=== PATIENT | female | born 1950 | race American Indian/Alaskan Native ===

== ENCOUNTER 2016-08-16 16:22 | Emergency (ER) | payer OTHER ==
[2016-08-16 17:30] LABS: Basophils % (Auto) 0.3 % (0.0-1.8); Hematocrit 35.6 % (30.3-42.9); Hemoglobin 11.8 gm/dl (10.1-14.3); Mean Corpuscular HGB Conc 33 % (30-34); Mean Corpuscular Hemoglobin 29 pg (28-32); Mean Corpuscular Volume 88 fl (79-97); Platelet Count 272 K/mm3 (140-440); Red Blood Count 4.04 M/mm3 (3.65-5.03); White Blood Count 7.4 K/mm3 (4.5-11.0)
[2016-08-16 17:35] LABS: Anion Gap 18 mmol/L; Blood Urea Nitrogen 18 mg/dL (7-17); Calcium 9.1 mg/dL (8.4-10.2); Carbon Dioxide 26 mmol/L (22-30); Chloride 99.8 mmol/L (98-107); Glucose 128 mg/dL (65-100); Sodium 140 mmol/L (137-145)
--- NOTE | 2016-08-16 20:12 | Emergency Department Report ---
ED General Adult HPI - General Chief complaint: Arrhythmia/Palpitations Stated complaint: HEART RACING Time Seen by Provider: 08/16/16 20:00 Source: patient, RN notes reviewed Mode of arrival: Ambulatory Limitations: No Limitations - History of Present Illness Initial comments: This is a 65-year-old female. She is previously unknown to me. She reports a past medical history hypertension. Primary care doctor is at [facility]; Dr. Artie Owens. The patient presents to the ER with a complaint of painless palpitations. They have been present for 8-9 days. The patient was previously on losartan, and indicates that the medication was causing her to have palpitations. She endorsed this to her primary care doctor, and the patient was switched to amlodipine. The palpitations are painless. There is no nausea, vomiting, diaphoresis or chest pain. There is no abdominal pain. No fevers or chills. No leg pain. No leg swelling. No trips greater than 4 hours within the past month. No recent hospital admissions. -: Gradual Severity scale (0 -10): 0 Consistency: intermittent Improves with: none Worsens with: none Associated Symptoms: denies: confusion, chest pain, cough, diaphoresis, fever/ chills, headaches, loss of appetite, malaise, nausea/vomiting, rash, shortness of breath, syncope, weakness - Related Data Home Medications Medication Instructions Recorded Confirmed Last Taken amLODIPine [Norvasc] 10 mg PO DAILY 08/16/16 08/16/16 Unknown Allergies Allergy/AdvReac Type Severity Reaction Status Date / Time codeine AdvReac "BODY NUMB" Verified 08/16/16 16:39 ibuprofen AdvReac "NERVOUS / Verified 08/16/16 16:39 SHAKE" ED Review of Systems ROS: Stated complaint: HEART RACING Other details as noted in HPI Constitutional: denies: fever Eyes: denies: vision change ENT: denies: epistaxis Respiratory: denies: cough Cardiovascular: palpitations. denies: chest pain Gastrointestinal: denies: nausea Genitourinary: as per HPI Musculoskeletal: as per HPI Skin: as per HPI Neurological: as per HPI Psychiatric: as per HPI ED Past Medical Hx - Past Medical History Hx Hypertension: Yes - Surgical History Additional Surgical History: LAPAROSCOPY - Social History Smoking Status: Never Smoker Substance Use Type: None - Medications Home Medications: Home Medications Medication Instructions Recorded Confirmed Last Taken Type amLODIPine [Norvasc] 10 mg PO DAILY 08/16/16 08/16/16 Unknown History ED Physical Exam - General Limitations: No Limitations General appearance: alert, in no apparent distress - Head Head exam: Present: atraumatic, normocephalic - Eye Eye exam: Present: normal appearance, EOMI. Absent: nystagmus - ENT ENT exam: Present: normal exam, normal orophraynx, mucous membranes moist, normal external ear exam - Neck Neck exam: Present: normal inspection, full ROM. Absent: tenderness, meningismus - Respiratory Respiratory exam: Present: normal lung sounds bilaterally. Absent: respiratory distress, wheezes, rales, rhonchi, stridor, chest wall tenderness, accessory muscle use, decreased breath sounds, prolonged expiratory - Cardiovascular Cardiovascular Exam: Present: regular rate, normal rhythm, normal heart sounds. Absent: bradycardia, tachycardia, irregular rhythm, systolic murmur, diastolic murmur, rubs, gallop - GI/Abdominal GI/Abdominal exam: Present: soft, normal bowel sounds. Absent: distended, tenderness, guarding, rebound, rigid, pulsatile mass - Extremities Exam Extremities exam: Present: normal inspection, full ROM, normal capillary refill. Absent: tenderness, pedal edema, joint swelling, calf tenderness - Back Exam Back exam: Present: normal inspection, full ROM. Absent: tenderness, CVA tenderness (R), CVA tenderness (L), muscle spasm, paraspinal tenderness, vertebral tenderness - Neurological Exam Neurological exam: Present: alert, oriented X3, normal gait, other (Extraocular movements intact. Tongue midline. No facial droop. Facial sensation intact to light touch in the V1, V2, V3 distribution bilaterally. 5 and 5 strength in 4 extremities.. Sensation is intact to light touch in 4 extremities.). Absent : motor sensory deficit - Psychiatric Psychiatric exam: Present: normal affect, normal mood - Skin Skin exam: Present: warm, dry, intact, normal color. Absent: rash ED Course Vital Signs 08/16/16 08/16/16 08/16/16 16:43 19:53 19:55 Temperature 98.9 F 98.5 F Pulse Rate 74 65 68 Respiratory 18 20 20 Rate Blood Pressure 195/87 Blood Pressure 154/65 [Left] O2 Sat by Pulse 97 99 100 Oximetry 08/16/16 08/16/16 08/16/16 20:00 20:06 20:08 Temperature Pulse Rate 72 68 Respiratory 14 20 Rate Blood Pressure 170/81 Blood Pressure [Left] O2 Sat by Pulse 100 Oximetry 08/16/16 08/16/16 08/16/16 20:10 20:20 20:30 Temperature Pulse Rate 65 75 65 Respiratory 13 18 17 Rate Blood Pressure 170/81 166/69 171/69 Blood Pressure [Left] O2 Sat by Pulse 99 100 99 Oximetry 08/16/16 08/16/16 08/16/16 20:40 20:50 21:00 Temperature Pulse Rate 71 65 66 Respiratory 18 17 15 Rate Blood Pressure 171/69 162/54 164/50 Blood Pressure [Left] O2 Sat by Pulse 98 100 99 Oximetry ED Medical Decision Making - Lab Data Result diagrams: 08/16/16 17:04 08/16/16 17:04 Vital Signs 08/16/16 08/16/16 08/16/16 16:43 19:53 19:55 Temperature 98.9 F 98.5 F Pulse Rate 74 65 68 Respiratory 18 20 20 Rate Blood Pressure 195/87 Blood Pressure 154/65 [Left] O2 Sat by Pulse 97 99 100 Oximetry 08/16/16 08/16/16 08/16/16 20:00 20:06 20:08 Temperature Pulse Rate 72 68 Respiratory 14 20 Rate Blood Pressure 170/81 Blood Pressure [Left] O2 Sat by Pulse 100 Oximetry 08/16/16 20:10 Temperature Pulse Rate 65 Respiratory 13 Rate Blood Pressure 170/81 Blood Pressure [Left] O2 Sat by Pulse 99 Oximetry Lab Results 08/16/16 08/16/16 08/16/16 Range/Units 17:04 17:04 19:44 WBC 7.4 (4.5-11.0) K/mm3 RBC 4.04 (3.65-5.03) M/mm3 Hgb 11.8 (10.1-14.3) gm/dl Hct 35.6 (30.3-42.9) % MCV 88 (79-97) fl MCH 29 (28-32) pg MCHC 33 (30-34) % RDW 14.0 (13.2-15.2) % Plt Count 272 (140-440) K/mm3 Lymph % (Auto) 30.3 (13.4-35.0) % Glasscock % (Auto) 7.3 (0.0-7.3) % Eos % (Auto) 1.0 (0.0-4.3) % Baso % (Auto) 0.3 (0.0-1.8) % Lymph # 2.2 (1.2-5.4) K/mm3 Glasscock # 0.5 (0.0-0.8) K/mm3 Eos # 0.1 (0.0-0.4) K/mm3 Baso # 0.0 (0.0-0.1) K/mm3 Seg Neutrophils % 61.1 (40.0-70.0) % Seg Neutrophils # 4.5 (1.8-7.7) K/mm3 Sodium 140 (137-145) mmol/L Potassium 4.0 (3.6-5.0) mmol/L Chloride 99.8 (98-107) mmol/L Carbon Dioxide 26 (22-30) mmol/L Anion Gap 18 mmol/L BUN 18 H (7-17) mg/dL Creatinine 0.8 (0.7-1.2) mg/dL Estimated GFR > 60 ml/min BUN/Creatinine Ratio 22.50 % Glucose 128 H (65-100) mg/dL Calcium 9.1 (8.4-10.2) mg/dL Troponin T < 0.010 < 0.010 (0.00-0.029) ng/mL - EKG Data -: EKG Interpreted by [place] EKG shows normal: sinus rhythm - EKG Data When compared to previous EKG there are: previous EKG unavailable 08/16/16 20:31 normal sinus, 75 bpm, left axis deviation, borderline left anterior fascicular block, incomplete right bundle branch block, left ventricular hypertrophy, QTC 460 ms, abnormal EKG, not morphologically consistent with STEMI, there is no prior for comparison. - Medical Decision Making Differential diagnosis: Electrolyte derangement, fibroid derangement, medication side effect Assessment and plan: 65-year-old female with years of palpitations. She has no chest pain, shortness of breath, nausea, vomiting or diaphoresis. Her elevated blood pressure/hypertension is appreciated, but it is asymptomatic. The patient has no pulmonary embolus or DVT risk factors, she is low risk by well's criteria, given her clinical history, I find the patient to be low risk by heart score, I do not believe she requires admission to the hospital for acute coronary syndrome or stratification. The patient is instructed to follow up with an outpatient primary care doctor or ground systems engineer for further adjustment of her medications. Critical care attestation.: If time is entered above; I have spent that time in minutes in the direct care of this critically ill patient, excluding procedure time. ED Disposition Clinical Impression: Palpitations, Elevated blood pressure reading Disposition: DISCHARGED TO HOME OR SELFCARE Is pt being admited?: No Does the pt Need Aspirin: No Condition: Stable Instructions: Palpitations (ED), Hypertension (ED) Additional Instructions: Continue current outpatient medications. Follow up with a primary care doctor or ground systems engineer within the next week to have medications adjusted. Dr. Reese Toro is a local primary care doctor. For your convenience, I have listed two of the local cardiology groups. Please note that blood pressure is elevated. this should be followed up by a primary care doctor or ground systems engineer within the recommended timeframe. Long- term complications of hypertension/elevated blood pressure includes stroke, heart attack, disability, , paralysis, loss of quality of life. On return to the ER right away with chest pain, shortness of breath, nausea, vomiting, sweating, confusion, inability to tolerate liquid feeds. Referrals: PRIMARY CARE, [Primary Care Provider] - 3-5 Days REESE TORO MD [Staff Physician] - 3-5 Days [facility] [Provider Group] - 3-5 Days [facility] [Provider Group] - 3-5 Days
[2016-08-16 21:20] VITALS: BP 164/50
== END 2016-08-16 21:19 | disposition home or self-care (01) ==
LOC: ED 16:22
DX: R00.2 Palpitations (principal); I10 Essential (primary) hypertension; Z88.6 Allergy status to analgesic agent; Z88.8 Allergy status to other drugs, medicaments and biological substances
CPT/HCPCS: 36415; 80048; 83735; 84443; 84484; 85025; 93005; 93010; 99284

== ENCOUNTER 2017-09-12 14:48 | Emergency (ER) | payer MEDICARE ==
[2017-09-12] MEDS ORDERED: MOTRIN PO ONE (17:13)
[2017-09-12] MEDS ORDERED: CATAPRES PO ONE (17:13)
[2017-09-12 18:43] VITALS: BP 159/59
--- NOTE | 2017-09-12 18:55 | Emergency Department Report ---
ED General Adult HPI - General Chief complaint: Headache Stated complaint: HEADACHE ON RT SIDE AND NECK PAIN Time Seen by Provider: 09/12/17 16:55 Source: patient Mode of arrival: Ambulatory Limitations: No Limitations - History of Present Illness Initial comments: Patient is a 66-year-old female past medical history of high blood pressure who presents with headache. Patient states headache is a 7 out of 10 is an achy type of pain doesn't radiate she denies having any blurry vision or any shortness of breath. Patient states that she also has not tried any medications for her headache. Patient has no nausea no vomiting no fever no neck pain. She denies any trauma to her head and denies any numbness or any paresthesia. Severity scale (0 -10): 8 - Related Data Previous Rx's Medication Instructions Recorded Last Taken Type Ibuprofen [Motrin] 400 mg PO Q8H PRN #30 tablet 09/12/17 Unknown Rx Lisinopril/Hydrochlorothiazide 1 each PO DAILY #30 tablet 09/12/17 Unknown Rx [Zestoretic 10-12.5 mg Tablet] amLODIPine [Norvasc] 10 mg PO DAILY #30 tablet 09/12/17 Unknown Rx Allergies Allergy/AdvReac Type Severity Reaction Status Date / Time codeine AdvReac "BODY NUMB" Verified 08/16/16 16:39 ibuprofen AdvReac "NERVOUS / Verified 08/16/16 16:39 SHAKE" ED Review of Systems ROS: Stated complaint: HEADACHE ON RT SIDE AND NECK PAIN Other details as noted in HPI Constitutional: denies: chills, fever Eyes: denies: eye pain, eye discharge, vision change ENT: denies: ear pain, throat pain Respiratory: denies: cough, shortness of breath, wheezing Cardiovascular: denies: chest pain, palpitations Endocrine: no symptoms reported Gastrointestinal: denies: abdominal pain, nausea, diarrhea Genitourinary: denies: urgency, dysuria, discharge Musculoskeletal: denies: back pain, joint swelling, arthralgia Skin: denies: rash, lesions Neurological: headache. denies: weakness, paresthesias Psychiatric: denies: anxiety, depression Hematological/Lymphatic: denies: easy bleeding, easy bruising ED Past Medical Hx - Past Medical History Hx Hypertension: Yes - Surgical History Additional Surgical History: LAPAROSCOPY - Social History Smoking Status: Never Smoker Substance Use Type: None - Medications Home Medications: Home Medications Medication Instructions Recorded Confirmed Last Taken Type Ibuprofen [Motrin] 400 mg PO Q8H PRN #30 tablet 09/12/17 Unknown Rx Lisinopril/Hydrochlorothiazide 1 each PO DAILY #30 tablet 09/12/17 Unknown Rx [Zestoretic 10-12.5 mg Tablet] amLODIPine [Norvasc] 10 mg PO DAILY #30 tablet 09/12/17 Unknown Rx ED Physical Exam - General Limitations: No Limitations General appearance: alert, in no apparent distress - Head Head exam: Present: atraumatic, normocephalic - Eye Eye exam: Present: normal appearance - ENT ENT exam: Present: mucous membranes moist - Neck Neck exam: Present: normal inspection - Respiratory Respiratory exam: Present: normal lung sounds bilaterally. Absent: respiratory distress - Cardiovascular Cardiovascular Exam: Present: regular rate, normal rhythm. Absent: systolic murmur, diastolic murmur, rubs, gallop - GI/Abdominal GI/Abdominal exam: Present: soft, normal bowel sounds - Extremities Exam Extremities exam: Present: normal inspection - Back Exam Back exam: Present: normal inspection - Neurological Exam Neurological exam: Present: alert, oriented X3 - Psychiatric Psychiatric exam: Present: normal affect, normal mood - Skin Skin exam: Present: warm, dry, intact, normal color. Absent: rash ED Course Vital Signs 09/12/17 09/12/17 09/12/17 14:57 17:19 18:42 Temperature 98.5 F 98.5 F Pulse Rate 66 65 77 Respiratory 18 18 Rate Blood Pressure 210/83 197/78 Blood Pressure 159/59 [Left] O2 Sat by Pulse 99 99 Oximetry - Reevaluation(s) Reevaluation #1: 09/12/17 18:57 Patient's headache is better I will send patient home. ED Medical Decision Making - Medical Decision Making Chief medical diagnosis: Tension headache Differential diagnosis: Hypertensive urgency, Migraine Headache I will give patient Motrin and I will give patient and antihypertensive medicaiton. Discussed with patient and patient agrees with plan additional verbal discharge instructions were given. Critical care attestation.: If time is entered above; I have spent that time in minutes in the direct care of this critically ill patient, excluding procedure time. ED Disposition Clinical Impression: Essential hypertension Headache Qualifiers: Headache type: tension-type Headache chronicity pattern: acute headache Intractability: not intractable Qualified Code(s): G44.209 - Tension-type headache, unspecified, not intractable Disposition: DC-01 TO HOME OR SELFCARE Is pt being admited?: No Does the pt Need Aspirin: No Condition: Stable Instructions: Hypertension (ED), Tension Headache (ED) Prescriptions: amLODIPine [Norvasc] 10 mg PO DAILY #30 tablet Ibuprofen [Motrin] 400 mg PO Q8H PRN #30 tablet PRN Reason: Headache Lisinopril/Hydrochlorothiazide [Zestoretic 10-12.5 mg Tablet] 1 each PO DAILY # 30 tablet Referrals: PRIMARY CARE, [Primary Care Provider] - 3-5 Days
== END 2017-09-12 19:11 | disposition home or self-care (01) ==
LOC: ED 14:48
DX: I10 Essential (primary) hypertension (principal); R51 Headache
CPT/HCPCS: 99282

== ENCOUNTER 2020-06-02 10:11 | Emergency (ER) | payer MEDICARE ==
[2020-06-02] MEDS ORDERED: dexAMETHasone 20 MG/5 ML VIAL IM ONE (10:40)
[2020-06-02] MEDS ORDERED: KETOROLAC 30 MG/1 ML INJ IM ONE (10:40)
--- NOTE | 2020-06-02 10:41 | Emergency Department Report ---
ED General Adult HPI - General Chief complaint: Extremity Injury, Lower Stated complaint: LEFT LEG PAIN Time Seen by Provider: 06/02/20 10:34 Source: patient Mode of arrival: Ambulatory Limitations: No Limitations - History of Present Illness Initial comments: 69-year-old -[place] female patient with history of hypertension presents with complaints of left back pain radiating down her right buttock and leg x1 month. Patient states she was recently seen by her PCP and had an ultrasound performed to rule out DVT last week-patient states test was negative for DVT. She reports that her pain is a 10/10 in severity and states that Tylenol is not helping. Pain worsens with ambulation and sitting on the left side. She denies any injury, loss of bladder/bowel control, saddle paresthesia, hematuria/hematochezia, abdominal pain, numbness/tingling/weakness in her leg, swelling, or weakness in her leg. - Related Data Previous Rx's Medication Instructions Recorded Last Taken Type Ibuprofen [Motrin] 400 mg PO Q8H PRN #30 tablet 09/12/17 Unknown Rx Lisinopril/Hydrochlorothiazide 1 each PO DAILY #30 tablet 09/12/17 Unknown Rx [Zestoretic 10-12.5 mg Tablet] amLODIPine 10 mg PO DAILY #30 tablet 09/12/17 Unknown Rx Meloxicam [Mobic] 15 mg PO QDAY PRN #15 tablet 06/02/20 Unknown Rx Prednisone [predniSONE 5 mg (6-Day 5 mg PO .TAPER #1 tab.ds.pk 06/02/20 Unknown Rx Pack, 21 Tabs)] methOCARBAMOL [Robaxin TAB] 500 mg PO BID #20 tab 06/02/20 Unknown Rx Allergies Allergy/AdvReac Type Severity Reaction Status Date / Time codeine AdvReac "BODY NUMB" Verified 06/02/20 10:14 ibuprofen AdvReac "NERVOUS / Verified 06/02/20 10:14 SHAKE" ED Review of Systems ROS: Stated complaint: LEFT LEG PAIN Other details as noted in HPI Constitutional: denies: chills, diaphoresis, fever, malaise, weakness Respiratory: denies: shortness of breath Cardiovascular: denies: chest pain Gastrointestinal: denies: abdominal pain Musculoskeletal: back pain. denies: joint swelling, arthralgia Neurological: denies: weakness, numbness, paresthesias ED Past Medical Hx - Past Medical History Hx Hypertension: Yes - Surgical History Additional Surgical History: LAPAROSCOPY - Social History Smoking Status: Never Smoker Substance Use Type: None - Medications Home Medications: Home Medications Medication Instructions Recorded Confirmed Last Taken Type Ibuprofen [Motrin] 400 mg PO Q8H PRN #30 tablet 09/12/17 Unknown Rx Lisinopril/Hydrochlorothiazide 1 each PO DAILY #30 tablet 09/12/17 Unknown Rx [Zestoretic 10-12.5 mg Tablet] amLODIPine 10 mg PO DAILY #30 tablet 09/12/17 Unknown Rx Meloxicam [Mobic] 15 mg PO QDAY PRN #15 tablet 06/02/20 Unknown Rx Prednisone [predniSONE 5 mg (6-Day 5 mg PO .TAPER #1 tab.ds.pk 06/02/20 Unknown Rx Pack, 21 Tabs)] methOCARBAMOL [Robaxin TAB] 500 mg PO BID #20 tab 06/02/20 Unknown Rx ED Physical Exam - General Limitations: No Limitations General appearance: alert, in no apparent distress, obese - Head Head exam: Present: atraumatic, normocephalic - Eye Eye exam: Present: normal appearance. Absent: scleral icterus - Respiratory Respiratory exam: Present: normal lung sounds bilaterally. Absent: respiratory distress - Cardiovascular Cardiovascular Exam: Present: regular rate, normal rhythm - GI/Abdominal GI/Abdominal exam: Present: soft. Absent: tenderness - Extremities Exam Extremities exam: Present: full ROM. Absent: calf tenderness - Expanded Lower Extremity Exam Left Knee exam: Present: normal inspection, full ROM Lower Leg exam: Present: normal inspection, full ROM Neuro vascular tendon exam: Present: no vascular compromise. Absent: extremity cold to touch Gait: Positive: antalgic - Back Exam Back exam: Present: full ROM, paraspinal tenderness (Lower lumbar), vertebral tenderness (Lower lumbar) - Expanded Back Exam Expanded Back exam: Absent: saddle anesthesia Back exam: Sciatic Notch Tenderness: Left, Positive Straight Leg Raise: Left - Neurological Exam Neurological exam: Present: alert, oriented X3 - Expanded Neurological Exam Expanded Motor strength exam: RLE: 5, LLE: 5 - Psychiatric Psychiatric exam: Present: normal affect, normal mood - Skin Skin exam: Present: warm, dry, intact, normal color. Absent: rash ED Course Vital Signs 03/18/21 03/18/21 10:15 12:09 Temperature 99.1 F Pulse Rate 78 72 Respiratory 20 18 Rate Blood Pressure 193/76 Blood Pressure 149/65 [Left] O2 Sat by Pulse 95 98 Oximetry ED Medical Decision Making - Radiology Data Radiology results: report reviewed LUMBOSACRAL SPINE 3 VIEWS INDICATION: left sided pain. COMPARISON: None. IMPRESSION: There is 6 mm anterolisthesis of L4 with respect to L5 secondary to degenerative facet arthropathy. The remaining vertebra are normal in alignment. Mild degenerative disc disease is noted at L4-5 and L5-S1. Moderate diffuse facet arthropathy is identified which is most pronounced at L4- 5. Mild symmetric degenerative changes in the SI joints. No acute osseous or soft tissue abnormality. - Medical Decision Making 69-year-old -[place] female patient with history of hypertension presents with complaints of left back pain radiating down her right buttock and leg x1 month. Patient states she was recently seen by her PCP and had an ultrasound performed to rule out DVT last week-patient states test was negative for DVT. She reports that her pain is a 10/10 in severity and states that Tylenol is not helping. Pain worsens with ambulation and sitting on the left side. She denies any injury, loss of bladder/bowel control, saddle paresthesia, hematuria/hematochezia, abdominal pain, numbness/tingling/weakness in her leg, swelling, or weakness in her leg. History and exam are consistent with sciatica. X-ray is negative for any acute bony abnormalities, however shows multiple degenerative changes. Patient given Toradol and Decadron. Pain significantly improved and patient now has nonantalgic gait. Discussed importance of stretches and NSAIDs and follow-up with primary care for further evaluation. Also recommend follow-up with channel specialist. She is well-appearing, her vitals are normal, she is stable for discharge home. Strict return precautions were discussed in detail with patient who verbalizes understanding. Critical care attestation.: If time is entered above; I have spent that time in minutes in the direct care of this critically ill patient, excluding procedure time. ED Disposition Clinical Impression: Low back pain with right-sided sciatica Qualifiers: Chronicity: acute Back pain laterality: midline Qualified Code(s): M54.41 - Shant[place] ago with sciatica, right side Disposition: TO HOME OR SELFCARE Is pt being admited?: No Condition: Stable Instructions: Sciatica Prescriptions: Meloxicam [Mobic] 15 mg PO QDAY PRN #15 tablet PRN Reason: pain Prednisone [predniSONE 5 mg (6-Day Pack, 21 Tabs)] 5 mg PO .TAPER #1 tab.ds.pk methOCARBAMOL [Robaxin TAB] 500 mg PO BID #20 tab Referrals: COLTON ALONSO MD [Primary Care Provider] - 3-5 Days JAJA SALOMON MD [Staff Physician] - 3-5 Days
--- NOTE | 2020-06-02 11:30 | XRay Report ---
LUMBOSACRAL SPINE 3 VIEWS INDICATION: left sided pain. COMPARISON: None. IMPRESSION: There is 6 mm anterolisthesis of L4 with respect to L5 secondary to degenerative facet a rthropathy. The remaining vertebra are normal in alignment. Mild degenerative disc disease is noted a t L4-5 and L5-S1. Moderate diffuse facet arthropathy is identified which is most pronounced at L4-5. Mild symmetric degenerative changes in the SI joints. No acute osseous or soft tissue abnormality. Signer Name: David Jesus Jr, MD Signed: 06/02/2020 11:26 AM Workstation Name: [id number]
[2020-06-02 12:09] VITALS: BP 149/65
== END 2020-06-02 12:10 | disposition home or self-care (01) ==
LOC: ED 10:11
DX: M54.41 Lumbago with sciatica, right side (principal); I10 Essential (primary) hypertension; Z98.890 Other specified postprocedural states; Z79.1 Long term (current) use of non-steroidal anti-inflammatories (NSAID); Z79.899 Other long term (current) drug therapy; Z88.8 Allergy status to other drugs, medicaments and biological substances
CPT/HCPCS: 72100; 96372; 99283; J1100; J1885

== ENCOUNTER 2021-11-26 14:35 | Emergency (ER) | payer MEDICARE ==
[2021-11-26] MEDS ORDERED: HYDROcodone/ACETAMINOPHEN 5-325 MG TAB PO ONE (21:38)
--- NOTE | 2021-11-26 21:38 | Emergency Department Report ---
ED General Adult HPI - General Chief complaint: Pain General Stated complaint: PAIN IN LEG/HIP Time Seen by Provider: 11/26/21 21:32 Source: patient Mode of arrival: Ambulatory Limitations: Physical Limitation - History of Present Illness Initial comments: 70 Y F with HTN, CHF and DM reports to ER with left side chronic hip pain for 3 week. patient denies no new injury. Patient report taking motrin for pain with no relief. Patient denies any fall or recent injury. No other acute symptoms reported. Severity scale (0 -10): 8 - Related Data Previous Rx's Medication Instructions Recorded Last Taken Type Ibuprofen [Motrin] 400 mg PO Q8H PRN #30 tablet 09/12/17 Unknown Rx Lisinopril/Hydrochlorothiazide 1 each PO DAILY #30 tablet 09/12/17 Unknown Rx [Zestoretic 10-12.5 mg Tablet] amLODIPine 10 mg PO DAILY #30 tablet 09/12/17 Unknown Rx Meloxicam [Mobic] 15 mg PO QDAY PRN #15 tablet 06/02/20 Unknown Rx Prednisone [predniSONE 5 mg (6-Day 5 mg PO .TAPER #1 tab.ds.pk 06/02/20 Unknown Rx Pack, 21 Tabs)] methOCARBAMOL [Robaxin TAB] 500 mg PO BID #20 tab 06/02/20 Unknown Rx traMADoL [Ultram 50 MG tab] 50 mg PO Q6HR PRN 2 Days #8 tablet 11/26/21 Unknown Rx Allergies Allergy/AdvReac Type Severity Reaction Status Date / Time codeine AdvReac "BODY NUMB" Verified 06/02/20 10:14 ibuprofen AdvReac "NERVOUS / Verified 06/02/20 10:14 SHAKE" ED Review of Systems ROS: Stated complaint: PAIN IN LEG/HIP Other details as noted in HPI Comment: All other systems reviewed and negative Musculoskeletal: other (left hip pain) ED Past Medical Hx - Past Medical History Previous Medical History?: Yes Hx Hypertension: Yes Hx Congestive Heart Failure: Yes Hx Diabetes: Yes - Surgical History Past Surgical History?: Yes Additional Surgical History: LAPAROSCOPY - Social History Smoking Status: Never Smoker Substance Use Type: None - Medications Home Medications: Home Medications Medication Instructions Recorded Confirmed Last Taken Type Ibuprofen [Motrin] 400 mg PO Q8H PRN #30 tablet 09/12/17 Unknown Rx Lisinopril/Hydrochlorothiazide 1 each PO DAILY #30 tablet 09/12/17 Unknown Rx [Zestoretic 10-12.5 mg Tablet] amLODIPine 10 mg PO DAILY #30 tablet 09/12/17 Unknown Rx Meloxicam [Mobic] 15 mg PO QDAY PRN #15 tablet 06/02/20 Unknown Rx Prednisone [predniSONE 5 mg (6-Day 5 mg PO .TAPER #1 tab.ds.pk 06/02/20 Unknown Rx Pack, 21 Tabs)] methOCARBAMOL [Robaxin TAB] 500 mg PO BID #20 tab 06/02/20 Unknown Rx traMADoL [Ultram 50 MG tab] 50 mg PO Q6HR PRN 2 Days #8 tablet 11/26/21 Unknown Rx ED Physical Exam - General Limitations: Physical Limitation General appearance: alert, in no apparent distress - Head Head exam: Present: atraumatic, normocephalic - Eye Eye exam: Present: normal appearance - ENT ENT exam: Present: mucous membranes moist - Neck Neck exam: Present: normal inspection - Respiratory Respiratory exam: Present: normal lung sounds bilaterally. Absent: respiratory distress - Cardiovascular Cardiovascular Exam: Present: regular rate, normal rhythm. Absent: systolic murmur, diastolic murmur, rubs, gallop - GI/Abdominal GI/Abdominal exam: Present: soft, normal bowel sounds - Extremities Exam Extremities exam: Present: normal inspection - Expanded Lower Extremity Exam Left Hip exam: Present: tenderness. Absent: swelling, deformity, dislocation - Back Exam Back exam: Present: normal inspection - Neurological Exam Neurological exam: Present: alert, oriented X3 - Psychiatric Psychiatric exam: Present: normal affect, normal mood - Skin Skin exam: Present: warm, dry, intact, normal color. Absent: rash ED Course Vital Signs 11/26/21 11/26/21 16:42 21:57 Temperature 98.2 F 98.5 F Pulse Rate 70 65 Respiratory 18 20 Rate Blood Pressure 204/80 177/77 [70] O2 Sat by Pulse 100 100 Oximetry ED Medical Decision Making - Medical Decision Making No imaging needed. No new injury reported. Patient reports she was in pain ibuprofen was not helping her at home. Patient reports she has upcoming appointment later this month. Patient stable for discharge. Patient received oral medication here in ER for pain and sent home with oral pain medicine. Patient agrees with plan of care and verbalized understanding. Patient reports she has normal blood medication at home that she needs to take. Patient is asymptomatic with elevated blood pressure. Vital Signs 11/26/21 11/26/21 16:42 21:57 Temperature 98.2 F 98.5 F Pulse Rate 70 65 Respiratory 18 20 Rate Blood Pressure 204/80 177/77 [70] O2 Sat by Pulse 100 100 Oximetry Critical care attestation.: If time is entered above; I have spent that time in minutes in the direct care of this critically ill patient, excluding procedure time. ED Disposition Clinical Impression: Chronic left hip pain Disposition: HOME / SELF CARE / HOMELESS Is pt being admited?: No Condition: Stable Instructions: Hip Pain, Chronic Pain, Adult Additional Instructions: Please Follow up with your Primary Care provider and Keep your appt for 12/07/2021 Prescriptions: traMADoL [Ultram 50 MG tab] 50 mg PO Q6HR PRN 2 Days #8 tablet PRN Reason: Pain Referrals: PRIMARY CARE, [Primary Care Provider] - 3-5 Days
[2021-11-26 21:58] VITALS: BP 177/77
== END 2021-11-26 22:45 | disposition home or self-care (01) ==
LOC: ED 14:35
DX: M25.552 Pain in left hip (principal); I11.0 Hypertensive heart disease with heart failure; I50.9 Heart failure, unspecified; E11.9 Type 2 diabetes mellitus without complications; Z88.0 Allergy status to penicillin; Z91.09 Other allergy status, other than to drugs and biological substances; Z79.899 Other long term (current) drug therapy
CPT/HCPCS: 99282